=== PATIENT | male | born 1940 | race Caucasian/White ===

== ENCOUNTER 2017-05-19 12:14 | Inpatient (IN) ==
--- NOTE | 2017-05-19 13:42 | Internal Med History&Physical ---
Date of Encounter: 05/19/17 Time of Encounter: 13:30 Assessment and Plan (1) Hypertension, essential Current visit: Yes Status: Chronic Continue home HCTZ and metoprolol. (2) Hyperlipidemia Current visit: Yes Status: Chronic Continue home simvastatin. Qualifiers: Hyperlipidemia type: unspecified Qualified Code(s): E78.5 - Hyperlipidemia , unspecified (3) Bilateral pulmonary embolism Current visit: Yes Status: Chronic Patient had a h/o bilateral PE and bilateral DVT. Warfarin is currently subtherapeutic per report, so will involve pharmacy for warfarin dosing as well as bridge with Lovenox. (4) DVT, bilateral lower limbs Current visit: Yes Status: Chronic Patient had a h/o bilateral PE and bilateral DVT. Warfarin is currently subtherapeutic per report, so will involve pharmacy for warfarin dosing as well as bridge with Lovenox. Qualifiers: Affected thrombotic vein of extremity: unspecified lower extremity distal vein Chronicity: chronic Qualified Code(s): I82.5Z3 - Chronic embolism and thrombosis of unspecified deep veins of distal lower extremity, bilateral (5) GERD (gastroesophageal reflux disease) Current visit: Yes Status: Chronic Continue home omeprazole. Qualifiers: Esophagitis presence: esophagitis presence not specified Qualified Code(s) : K21.9 - Gastro-esophageal reflux disease without esophagitis (6) Neuropathic pain Current visit: Yes Status: Chronic Continue home gabapentin. (7) ESPERANZA treated with BiPAP Current visit: Yes Status: Chronic Continue home BiPAP with chin strap. (8) Status post right knee replacement Current visit: Yes Status: Acute - PT, OT, and RT consulted; appreciate rec(s). - Pain control with celecoxib, Manti, and oxycodone. (9) Constipation Current visit: Yes Status: Acute Will schedule Colace for now. Qualifiers: Constipation type: unspecified constipation type Qualified Code(s): K59.00 - Constipation, unspecified (10) Subtherapeutic international normalized ratio (INR) Current visit: Yes Status: Acute Appreciate pharmacy's input on warfarin dosing, will bridge with Lovenox as well. (11) Glaucoma Current visit: Yes Status: Acute Continue home latanoprost. Qualifiers: Glaucoma type: unspecified Laterality: unspecified laterality Qualified Code(s): H40.9 - Unspecified glaucoma Internal Medicine - H&P: HPI Chief complaint: S/P right knee arthroplasty needing rehab. History of present illness: Mr. Solis is a 76 year old male w/a PMH significant for HTN, HLD, h/o bilateral PE and DVT on chronic warfarin and s/p IVC filter in 2010, GERD, neuropathic pain, glaucoma, morbid obesity, ESPERANZA on BiPAP, and OA of right knee s/p right total knee arthroplasty on 05/16/2017 who has been transferred to our facility from [facility] for rehab purposes. At the time of this encounter, there was no discharge summary available. According to the patient, his procedure went well and he is looking forward to working with our therapists. Other than not having a BM for the past 4d, the patient feels overall well. Patient reports no fever, chills, CP, SOB, n/v, dysuria, seizure, tremor, skin rash, bruising, or bleeding symptoms. Per report, INR was 1.1 at discharge. It appears that the patient was discharged on scheduled celecoxib, PRN Manti, and PRN oxycodone for pain control. Past Med Surg Social Fam HX - Past Medical History Medical history: arthritis, DVT, GERD, glaucoma, hyperlipidemia, hypertension, pulmonary embolus - Past Surgical History Surgical History: appendectomy, cataract, knee replacement - Social History Smoking Status: Never smoker Smokeless Tobacco Status: No Alcohol use: none Drug use: none - Family History Mother Adopted: No Living Status: Hx Family Cardiac Disorders: Yes Internal Medicine - H&P: Meds 3 Allergy/AdvReac Type Severity Reaction Status Date / Time No Known Drug Allergies Allergy Loss of Verified 05/19/17 13:08 Appetite All Systems PM: A 10-system review of systems was performed and is negative for pertinent findings except as documented above in the HPI. Review of systems: 10-point ROS performed and (-) other than mentioned per HPI. - Constitutional Exam: Gen: A&Ox3, NAD. HEENT: Chin strap on (comes with BiPAP). NCAT. Neck: No palpable lymphadenopathy or thyromegaly. CV: Heart sounds mildly distant, but overall RRR, S1S2. No murmur. Capillary refill < 2 seconds. Pulm: On BiPAP (was taking a nap prior to this encounter). CTAB. Abd: (+)BS. NDNT. Neuro: Relative immobility in RLE, otherwise non-focal. Skin: No rash. Ext: Dressings over right knee c/d/i. No pitting edema. - Head Head exam: Present: atraumatic, normocephalic - Eye Eye exam: Present: PERRL, conjuntiva pink, sclera anicteric Pupils: Present: PERRL - Neck Neck exam general surgery: Present: supple, trachea midline. Absent: lymphadenopathy - Respiratory Respiratory exam: Present: CTAB. Absent: accessory muscle use, rales, rhonchi, wheezes - Cardiovascular Cardiovascular exam: Present: RRR, +S1, +S2. Absent: diastolic murmur, gallop, rubs, systolic murmur - GI/Abdominal GI/Abdominal exam: Present: normal bowel sounds, soft, no peritoneal signs. Absent: distended, tenderness - Extremities Exam Extremities exam: Present: warm, radial pulses palpable and symmetrical. Absent : calf tenderness, cyanotic, pedal edema - Neurological Exam Neurological exam: Present: CN II-XII intact, oriented X3, no focal deficits. Absent: pronater drift, facial droop, speech deficit - Skin Skin exam: Present: dry, intact
[2017-05-19 15:32] LABS: INR 1.2; Prothrombin Time 13.1 Seconds (9.4-12.1)
[2017-05-19] MEDS: *HR* Warfarin 3 MG TABLET PO SCH (17:34)
[2017-05-19] MEDS: *HR* OxyCODONE Immed Rel 5 MG TABLET PO PRN (17:42)
[2017-05-19] MEDS: *HR* Enoxaparin 150 MG/ML SYRINGE SQ SCH (17:42)
[2017-05-19] MEDS ORDERED: Warfarin perPT PO PRN (18:00)
[2017-05-19] MEDS: Gabapentin 300 MG CAPSULE PO SCH (21:46)
[2017-05-19] MEDS: *HR* HYDROcodone/Acet 5/325 mg TABLET PO PRN (21:50)
[2017-05-19] MEDS: Latanoprost 2.5 ML BOTTLE BOTH EYES SCH (21:51)
[2017-05-20] MEDS: *HR* HYDROcodone/Acet 5/325 mg TABLET PO PRN ×3 (04:04→12:44)
[2017-05-20 06:02] LABS: Basophils # 0.1 K/mcL (0.0-0.2); Basophils % 1.2 %; Eosinophils # 0.3 K/mcL (0.0-0.6); Hematocrit 36.3 % (37.5-50.1); Hemoglobin 12.1 g/dL (12.9-16.9); Immature Granulocytes % 0.8 % (0-4); Lymphocytes # 1.8 K/mcL (0.6-4.6); Lymphocytes % 26.4 %; Mean Corpuscular HGB Conc 33.3 g/dL (31.6-35.5); Mean Corpuscular Hemoglobin 29.5 pg (28.0-33.3); Mean Corpuscular Volume 88.5 fL (83.0-100.0); Mean Platelet Volume 10.9 fL (9.4-12.4); Monocytes # 0.6 K/mcL (0.0-1.3); Monocytes % 8.4 %; Neutrophils # 3.9 K/mcL (1.6-8.9); Platelet Count 165 K/mcL (140-400); Red Cell Distribution Width 14.2 % (11.5-14.5); Segmented Neutrophils % 58.2 %
[2017-05-20] MEDS: *HR* Enoxaparin 150 MG/ML SYRINGE SQ SCH ×2 (06:03→17:44)
[2017-05-20 06:12] LABS: BUN/Creatinine Ratio 25 (6-26); Blood Urea Nitrogen 20 mg/dL (8-26); Calcium 8.7 mg/dL (8.6-10.8); Carbon Dioxide 23 mEq/L (19-29); Chloride 104 mEq/L (98-109); Glucose 104 mg/dL (70-99); Osmolality,Calculated 283 (280-300); Potassium 4.2 mEq/L (3.5-4.5); Sodium 135 mEq/L (136-145); eGFR For African Americans > 60 (> 60); eGFR For Non-African Americans > 60 (> 60)
[2017-05-20 07:14] LABS: INR 1.3; Prothrombin Time 13.9 Seconds (9.4-12.1)
[2017-05-20 07:17] LABS: Activated Partial Thrombo Time 35.3 Seconds (26.0-36.0)
[2017-05-20] MEDS: Lisinopril 20 MG TABLET PO SCH (08:33)
[2017-05-20] MEDS: hydroCHLOROthiazide 25 MG TABLET PO SCH (08:33)
[2017-05-20] MEDS: Gabapentin 300 MG CAPSULE PO SCH ×2 (08:34→20:14)
[2017-05-20] MEDS: Celecoxib 200 MG CAPSULE PO SCH (08:34)
--- NOTE | 2017-05-20 14:09 | Internal Med Progress Note ---
Date of Encounter: 05/20/17 Time of Encounter: 14:07 - Assessment and plan (1) Bilateral pulmonary embolism Current Visit: Yes Status: Chronic Assessment and plan: She had a remote bilateral DVTs with bilateral PEs. I am sure his Coumadin was held due to his recent surgery for the knee (2) DVT, bilateral lower limbs Current Visit: Yes Status: Chronic Assessment and plan: At DVTs of the lower extremities and with PE Qualifiers: Affected thrombotic vein of extremity: unspecified lower extremity distal vein Chronicity: chronic Qualified Code(s): I82.5Z3 - Chronic embolism and thrombosis of unspecified deep veins of distal lower extremity, bilateral (3) Status post right knee replacement Current Visit: Yes Status: Acute Assessment and plan: Probably why some therapeutic on his Coumadin was held for surgery - Time Spent With Patient less than 15 minutes - Subjective Interval history: Patient's doing well walk 200 feet and is cooperating with PT OT and TR. - Constitutional Vitals: Temp Pulse Resp BP Pulse Ox 98.6 F 72 16 164/81 95 05/20/17 11:15 05/20/17 11:15 05/20/17 11:15 05/20/17 11:15 05/20/17 11:15 - Head Head exam: Present: atraumatic, normal inspection, normocephalic - Neck Neck exam general surgery: Present: supple, trachea midline. Absent: lymphadenopathy - Respiratory Respiratory exam: Present: CTAB. Absent: accessory muscle use, rales, rhonchi, wheezes - Cardiovascular Cardiovascular exam: Present: RRR, +S1, +S2. Absent: diastolic murmur, gallop, rubs, systolic murmur Internal Medicine: Result - Labs CBC & Chem 7: 05/20/17 05:10 05/20/17 05:10 Labs: Short CBC 05/20/17 Range/Units 05:10 WBC 6.6 (4.3-11.1) K/mcL Hgb 12.1 L (12.9-16.9) g/dL Hct 36.3 L (37.5-50.1) % Plt Count 165 (140-400) K/mcL Neutrophils # 3.9 (1.6-8.9) K/mcL BMP 05/20/17 05:10 Sodium 135 L Potassium 4.2 Chloride 104 Carbon Dioxide 23 BUN 20 Creatinine 0.81 Glucose 104 H Calcium 8.7 Labs stable - ABG Interpretation ABG results: PT/INR, D-dimer PT 13.9 Seconds (9.4-12.1) H 05/20/17 05:10 - VTE Documentation of Mechanical Device: Graduated compression elastic hosiery Consult Discharge Plan - Plan Referrals: Delvis Ariza MD [Primary Care Provider] -
[2017-05-20] MEDS: *HR* Warfarin 3 MG TABLET PO SCH (17:44)
[2017-05-20] MEDS: Latanoprost 2.5 ML BOTTLE BOTH EYES SCH (20:16)
[2017-05-20] MEDS: *HR* OxyCODONE Immed Rel 5 MG TABLET PO PRN (20:24)
[2017-05-21] MEDS: *HR* OxyCODONE Immed Rel 5 MG TABLET PO PRN ×4 (03:43→23:42)
[2017-05-21 06:08] LABS: INR 1.4; Prothrombin Time 15.2 Seconds (9.4-12.1)
[2017-05-21] MEDS: *HR* Enoxaparin 150 MG/ML SYRINGE SQ SCH ×2 (06:08→16:43)
[2017-05-21] MEDS: Celecoxib 200 MG CAPSULE PO SCH (09:12)
[2017-05-21] MEDS: Gabapentin 300 MG CAPSULE PO SCH ×2 (09:12→21:13)
[2017-05-21] MEDS: Lisinopril 20 MG TABLET PO SCH (09:12)
[2017-05-21] MEDS: hydroCHLOROthiazide 25 MG TABLET PO SCH (09:13)
[2017-05-21] MEDS ORDERED: Celecoxib 200 MG CAPSULE PO PRN (14:27)
--- NOTE | 2017-05-21 14:27 | Internal Med Progress Note ---
Date of Encounter: 05/21/17 Time of Encounter: 14:24 - Assessment and plan (1) Bilateral pulmonary embolism Current Visit: Yes Status: Chronic Assessment and plan: Well patient is currently stable he is back on meds now that surgery is over there is no bleeding. (2) DVT, bilateral lower limbs Current Visit: Yes Status: Chronic Assessment and plan: History Qualifiers: Affected thrombotic vein of extremity: unspecified lower extremity distal vein Chronicity: chronic Qualified Code(s): I82.5Z3 - Chronic embolism and thrombosis of unspecified deep veins of distal lower extremity, bilateral (3) Status post right knee replacement Current Visit: Yes Status: Acute Assessment and plan: Why he is here for rehabilitation. - Time Spent With Patient less than 15 minutes - Subjective Interval history: Patient's doing well walk 200 feet and is cooperating with PT OT and TR.. Doing well only complaint is constipation after 6 days. Pain is intermittent and depending on amateur exercises doing. Making good progress. - Constitutional Vitals: Temp Pulse Resp BP Pulse Ox 98 F 80 16 158/82 96 05/21/17 11:00 05/21/17 11:00 05/21/17 11:00 05/21/17 11:00 05/21/17 11:00 - Head Head exam: Present: atraumatic, normal inspection, normocephalic - Neck Neck exam general surgery: Present: supple, trachea midline. Absent: lymphadenopathy - Respiratory Respiratory exam: Present: CTAB. Absent: accessory muscle use, rales, rhonchi, wheezes - Cardiovascular Cardiovascular exam: Present: RRR, +S1, +S2. Absent: diastolic murmur, gallop, rubs, systolic murmur - Expanded Lower Extremities Exam Knee exam: Present: swelling, tenderness (Dressings clean and dry) Internal Medicine: Result - Labs CBC & Chem 7: 05/20/17 05:10 05/20/17 05:10 Labs: Lab is stable - ABG Interpretation ABG results: PT/INR, D-dimer PT 15.2 Seconds (9.4-12.1) H 05/21/17 05:35 - VTE Documentation of Mechanical Device: Intermittent pneumatic compression device Consult Discharge Plan - Plan Referrals: Delvis Ariza MD [Primary Care Provider] -
[2017-05-21] MEDS ORDERED: *HR* Warfarin 3 MG TABLET PO SCH (18:00)
[2017-05-21] MEDS ORDERED: *HR* Warfarin 5 MG TABLET PO SCH (18:00)
[2017-05-21] MEDS: Latanoprost 2.5 ML BOTTLE BOTH EYES SCH (23:42)
[2017-05-22] MEDS: *HR* Enoxaparin 150 MG/ML SYRINGE SQ SCH ×2 (06:57→17:05)
[2017-05-22] MEDS: *HR* OxyCODONE Immed Rel 5 MG TABLET PO PRN ×2 (06:57→20:33)
[2017-05-22 07:37] LABS: INR 1.3; Prothrombin Time 14.5 Seconds (9.4-12.1)
[2017-05-22] MEDS: hydroCHLOROthiazide 25 MG TABLET PO SCH (09:55)
[2017-05-22] MEDS: Celecoxib 200 MG CAPSULE PO SCH (09:56)
[2017-05-22] MEDS: Gabapentin 300 MG CAPSULE PO SCH ×2 (09:56→20:34)
[2017-05-22] MEDS: Lisinopril 20 MG TABLET PO SCH (09:57)
[2017-05-22] MEDS: *HR* HYDROcodone/Acet 5/325 mg TABLET PO PRN ×2 (12:32→17:05)
--- NOTE | 2017-05-22 12:43 | Physical Med Progress Note ---
Date of Encounter: 05/22/17 Time of Encounter: 12:35 Physical Medicine-PN: Subj Interval history: PMR PCC Note Patient admitted following right total knee arthroplasty. Patient is mod I for all ADLs. Patient is independent on the unit. Able to go up and down steps mod I. Plan for discharge to home 05/23/17. - Constitutional Vitals: Vital Signs Temp Pulse Resp BP Pulse Ox 05/22/17 07:00 97.8 F 70 18 169/84 95 05/21/17 19:27 98.7 F 88 17 161/82 94 Intake and Output 05/21/17 05/22/17 05/22/17 23:59 07:59 15:59 Intake Total 550 / 550 460 / 460 Balance 550 / 550 460 / 460 Intake: Oral 550 / 550 460 / 460 Other: Meal Breakfast Percent of Meal Consumed 100% Stool Size Copious Stool Consistency formed Stool Color Brown # Voids 1 # Bowel Movements 1 Physical Medicine-PN: Obj Data - Labs CBC & Chem 7: 05/20/17 05:10 05/20/17 05:10 Labs: Laboratory Results - last 24 hr 05/22/17 07:14 PT 14.5 H INR 1.3 - ABG Interpretation ABG results: PT/INR, D-dimer PT 14.5 Seconds (9.4-12.1) H 05/22/17 07:14 - VTE Documentation of Mechanical Device: Intermittent pneumatic compression device Consult Discharge Plan - Plan Referrals: Delvis Ariza MD [Primary Care Provider] -
--- NOTE | 2017-05-22 15:49 | Discharge Summary ---
Date of Encounter: 05/22/17 Time of Encounter: 15:47 - Discharge Diagnosis (1) Bilateral pulmonary embolism Priority: Secondary Status: Chronic (2) DVT, bilateral lower limbs Priority: Secondary Status: Chronic Qualifiers: Affected thrombotic vein of extremity: unspecified lower extremity distal vein Chronicity: chronic Qualified Code(s): I82.5Z3 - Chronic embolism and thrombosis of unspecified deep veins of distal lower extremity, bilateral (3) Status post right knee replacement Priority: Primary Status: Acute - Discharge Medications Home Medications: Gabapentin [Neurontin] 300 mg PO BID 05/19/17 [History] Hydrochlorothiazide [Microzide] 12.5 mg PO DAILY 05/19/17 [History] Latanoprost [Xalatan] 2.5 bottle BOTH EYES HS 05/19/17 [History] Lisinopril [Zestril] 20 mg PO DAILY 05/19/17 [History] Metoprolol Tartrate [Lopressor] 50 mg PO BID 05/19/17 [History] Multivit-Min/Iron Fum/Folic AC [Bhlvj-Qinowsp-Irmpuqxl Tablet] 1 each PO DAILY 05/19/17 [History] [place]-3S/Dha/Epa/Fish Oil [Fish Oil [place]-3 Softgel] 1 tab PO BID 05/19/17 [ History] Omeprazole [PriLOSEC] 20 mg PO DAILY 05/19/17 [History] Simvastatin [Zocor] 20 mg PO HS 05/19/17 [History] Warfarin [Coumadin] 5 tab PO 2XW 05/19/17 [History] Warfarin [Coumadin] 6 mg PO 5XW 05/19/17 [History] Allergies/Adverse Reactions: 3 Allergy/AdvReac Type Severity Reaction Status Date / Time No Known Drug Allergies Allergy Loss of Verified 05/19/17 13:08 Appetite Date of admission: 05/19/17 12:14 Primary care physician: Delvis Ariza MD Consults: 05/19/17 13:20 Consult to Occupational Therapy [CONS] Routine Comment: Evaluate, develop and implement POC Reason for Consult: Please assess and assist with dispo, thanks! Consult to Physical Therapy [CONS] Routine Comment: Evaluate, develop and implement POC Reason for Consult: Please assess and assist with dispo, thanks! Consult to Recreational Therapy [CONS] Routine Comment: Evaluate, develop and implement POC Consult to Big Data Engineer [CONS] Routine Reason for SW Consult: Discharge planning, thanks! 05/20/17 13:36 Consult for Pharmacy Education [CONS] Routine Reason for Consult: Warfarin dosing Time Notified: 11:00 Call Completed: No Discharging clinician: Ziggy Hurley - Patient Status Disposition: Home, Self-Care Condition: Good Functional capacity at discharge: uses cane/walker Overall status at discharge: patient is progressing back to baseline - Discharge Instructions Follow Up With: Delvis Ariza MD [Primary Care Provider] - - Diet and Activity Activity: ambulate only with your walker Diet: advance to your usual diet Interval History: Patient was brought here for rehabilitation after total knee replacement on the left. Hospital course: Mr. Solis is a 76 year old male Age and is ambulating about the unit with his walker and doing very well. He is up dressed eating and has follow-ups - Time Spent with Patient Total time spent providing and/or coordinating discharge services: Less than 30 minutes - Constitutional Vitals: Temp Pulse Resp BP Pulse Ox 97.8 F 70 18 169/84 95 05/22/17 07:00 05/22/17 07:00 05/22/17 07:00 05/22/17 07:00 05/22/17 07:00 - Head Head exam: Present: atraumatic, normal inspection, normocephalic - Neck Neck exam general surgery: Present: supple, trachea midline. Absent: lymphadenopathy - Respiratory Respiratory exam: Present: CTAB. Absent: accessory muscle use, rales, rhonchi, wheezes - Cardiovascular Cardiovascular exam: Present: RRR, +S1, +S2. Absent: diastolic murmur, gallop, rubs, systolic murmur - VTE Documentation of Mechanical Device: Intermittent pneumatic compression device
[2017-05-22] MEDS ORDERED: *HR* Warfarin 7.5 MG TABLET PO ONE (18:00)
[2017-05-22] MEDS: Latanoprost 2.5 ML BOTTLE BOTH EYES SCH (20:36)
[2017-05-23 05:38] LABS: INR 1.3; Prothrombin Time 14.4 Seconds (9.4-12.1)
[2017-05-23] MEDS: *HR* HYDROcodone/Acet 5/325 mg TABLET PO PRN (06:34)
[2017-05-23] MEDS: *HR* Enoxaparin 150 MG/ML SYRINGE SQ SCH (06:34)
[2017-05-23 07:07] VITALS: BP 131/79
[2017-05-23] MEDS: Celecoxib 200 MG CAPSULE PO SCH (09:08)
[2017-05-23] MEDS: Gabapentin 300 MG CAPSULE PO SCH (09:08)
[2017-05-23] MEDS: Lisinopril 20 MG TABLET PO SCH (09:08)
[2017-05-23] MEDS: hydroCHLOROthiazide 25 MG TABLET PO SCH (09:08)
[2017-05-23] MEDS: *HR* OxyCODONE Immed Rel 5 MG TABLET PO PRN (10:22)
[2017-05-23] MEDS ORDERED: *HR* Warfarin 7.5 MG TABLET PO ONE (18:00)
== END 2017-05-23 16:02 | disposition home or self-care (01) | DRG 560 ==
LOC: INPGRE 12:14
PROVIDERS: ADMIT Internal Medicine; ATTEND Internal Medicine

== ENCOUNTER 2022-03-04 20:05 | Inpatient (IN) ==
[2022-03-04] MEDS ORDERED: 0.9 % Sodium Chloride 1,000 ML IV ONE (20:20)
[2022-03-04 20:37] LABS: Basophils # 0.1 K/mcL (0.0-0.2); Basophils % 0.9 %; Eosinophils % 0.4 %; Hematocrit 46.7 % (37.5-50.1); Hemoglobin 15.2 g/dL (12.9-16.9); Immature Granulocytes % 0.5 % (0-4); Lymphocytes # 0.4 K/mcL (0.6-4.6); Lymphocytes % 5.5 %; Mean Corpuscular HGB Conc 32.5 g/dL (31.6-35.5); Mean Corpuscular Hemoglobin 28.4 pg (28.0-33.3); Mean Corpuscular Volume 87.1 fL (83.0-100.0); Mean Platelet Volume 10.1 fL (9.4-12.4); Monocytes # 0.8 K/mcL (0.0-1.3); Monocytes % 10.4 %; Neutrophils # 6.6 K/mcL (1.6-8.9); Platelet Count 170 K/mcL (140-400); Red Blood Count 5.36 M/mcL (4.19-5.50); Red Cell Distribution Width 14.2 % (11.5-14.5); Segmented Neutrophils % 82.3 %
[2022-03-04 20:50] LABS: INR 2.5; Prothrombin Time 27.4 Seconds (9.4-12.1)
[2022-03-04 20:53] LABS: Albumin 4.2 g/dL (3.5-5.7); Albumin/Globulin Ratio 1.6 (1.1-2.2); Bilirubin,Direct 0.2 mg/dL (0.0-0.2); Bilirubin,Total 0.7 mg/dL (0.3-1.0); Calcium 9.5 mg/dL (8.6-10.3); Globulin 2.6 g/dL (2.4-3.5); Magnesium 1.6 mg/dL (1.6-2.6); Potassium 3.9 mEq/L (3.5-5.1); Total Protein 6.8 g/dL (6.4-8.9)
[2022-03-04 21:01] LABS: Troponin I 0.01 ng/mL (< 0.04)
[2022-03-04 21:25] LABS: Bilirubin,Urine Negative (Negative); Blood,Urine Trace-intact (Negative); Clarity,Urine Clear (Clear); Color,Urine Yellow (Yellow); Glucose,Urine (UA) Normal (Normal); Ketones,Urine Trace mg/dL (Negative); Leukocyte Esterase,Urine Negative (Negative); Nitrite,Urine Negative (Negative); PH,Urine 5.5 pH Units (5.0-8.0); Protein,Urine 30 mg/dL (Neg-Trace); Urobilinogen,Urine Normal (Normal)
[2022-03-04 21:29] LABS: Amorphous Sediment,Urine Few per hpf (None-Few); RBC,Urine 0-3 per hpf (0-3)
[2022-03-04] MEDS ORDERED: Ondansetron ODT 4 MG TAB.RAPDIS SL PRN (22:32)
[2022-03-04] MEDS ORDERED: Naloxone 0.4 MG/ML INJ IVP PRN (22:32)
[2022-03-04] MEDS: Gabapentin 400 MG CAPSULE PO SCH (23:27)
[2022-03-04] MEDS: 0.9 % Sodium Chloride 1,000 ML IVC SCH (23:28)
[2022-03-05 08:36] LABS: Basophils % 0.7 %; Eosinophils # 0.2 K/mcL (0.0-0.6); Eosinophils % 3.1 %; Hematocrit 44.7 % (37.5-50.1); Hemoglobin 14.2 g/dL (12.9-16.9); Immature Granulocytes % 0.3 % (0-4); Lymphocytes # 1.2 K/mcL (0.6-4.6); Lymphocytes % 19.6 %; Mean Corpuscular HGB Conc 31.8 g/dL (31.6-35.5); Mean Corpuscular Hemoglobin 28.4 pg (28.0-33.3); Mean Corpuscular Volume 89.4 fL (83.0-100.0); Mean Platelet Volume 9.9 fL (9.4-12.4); Monocytes # 1.1 K/mcL (0.0-1.3); Monocytes % 17.7 %; Neutrophils # 3.6 K/mcL (1.6-8.9); Platelet Count 153 K/mcL (140-400); Red Cell Distribution Width 14.6 % (11.5-14.5); Segmented Neutrophils % 58.6 %; White Blood Count 6.1 K/mcL (4.3-11.1)
[2022-03-05 08:50] LABS: Calcium 8.6 mg/dL (8.6-10.3); Potassium 3.9 mEq/L (3.5-5.1)
[2022-03-05] MEDS: Benzonatate 100 MG CAPSULE PO PRN ×2 (09:09→17:56)
[2022-03-05] MEDS: Multivit/Ca/Min/Fe/FA 1 TAB TABLET PO SCH (09:09)
[2022-03-05] MEDS: Gabapentin 400 MG CAPSULE PO SCH ×3 (09:09→21:01)
[2022-03-05] MEDS: lisinopriL 10 MG TABLET PO SCH (09:10)
[2022-03-05 10:56] LABS: Prothrombin Time 22.2 Seconds (9.4-12.1)
[2022-03-05] MEDS ORDERED: dexAMETHasone 4 MG TABLET PO SCH (11:00)
[2022-03-05] MEDS: Latanoprost 2.5 ML BOTTLE BOTH EYES SCH (11:24)
[2022-03-05] MEDS ORDERED: Saline Nasal Spray 44 ML BOTTLE NS PRN (14:48)
[2022-03-05] MEDS: Dexamethasone Sodium Phos/PF 10 MG/ML VIAL IVP SCH (15:17)
[2022-03-05] MEDS: 0.9 % Sodium Chloride 1,000 ML IVC SCH (17:24)
[2022-03-05] MEDS: Doxycycline 100 MG in 0.9 % Sodium Chloride Mini Bag 100 ML IVPB SCH (17:56)
[2022-03-05] MEDS ORDERED: *HR* Warfarin 5 MG TABLET PO SCH (18:00)
[2022-03-06] MEDS: Doxycycline 100 MG in 0.9 % Sodium Chloride Mini Bag 100 ML IVPB SCH ×2 (04:48→18:26)
[2022-03-06] MEDS: Benzonatate 100 MG CAPSULE PO PRN ×2 (04:49→21:55)
[2022-03-06 05:00] LABS: Mean Corpuscular HGB Conc 32.6 g/dL (31.6-35.5); Mean Corpuscular Hemoglobin 28.6 pg (28.0-33.3); Mean Corpuscular Volume 87.6 fL (83.0-100.0); Mean Platelet Volume 10.1 fL (9.4-12.4); Platelet Count 169 K/mcL (140-400); Red Blood Count 5.25 M/mcL (4.19-5.50); White Blood Count 5.5 K/mcL (4.3-11.1)
[2022-03-06 05:19] LABS: BUN/Creatinine Ratio 18 (6-26); Blood Urea Nitrogen 21 mg/dL (8-23); Calcium 8.9 mg/dL (8.6-10.3); Carbon Dioxide 27 mEq/L (23-29); Chloride 104 mEq/L (98-107); Glucose 171 mg/dL (70-105); Osmolality,Calculated 297 (280-300); Potassium 3.9 mEq/L (3.5-5.1); Sodium 140 mEq/L (136-145); eGFR For African Americans > 60 (> 60); eGFR For Non-African Americans 58 (> 60)
[2022-03-06] MEDS: Dexamethasone Sodium Phos/PF 10 MG/ML VIAL IVP SCH (08:14)
[2022-03-06] MEDS: Gabapentin 400 MG CAPSULE PO SCH ×3 (08:14→21:55)
[2022-03-06] MEDS: lisinopriL 10 MG TABLET PO SCH (08:15)
[2022-03-06] MEDS: Multivit/Ca/Min/Fe/FA 1 TAB TABLET PO SCH (08:15)
[2022-03-06] MEDS ORDERED: Dexamethasone Sodium Phos/PF 10 MG/ML VIAL IVP SCH (09:00)
[2022-03-06] MEDS ORDERED: Warfarin perPT PO PRN (14:14)
[2022-03-06] MEDS ORDERED: *HR* Warfarin 2.5 MG TABLET PO SCH (18:00)
[2022-03-06] MEDS ORDERED: *HR* Warfarin 2.5 MG TABLET PO ONE (18:00)
[2022-03-06] MEDS: Latanoprost 2.5 ML BOTTLE BOTH EYES SCH (21:56)
[2022-03-07 04:46] LABS: INR 2.3
[2022-03-07] MEDS: Doxycycline 100 MG in 0.9 % Sodium Chloride Mini Bag 100 ML IVPB SCH (06:05)
[2022-03-07 06:51] VITALS: RESP 18
[2022-03-07] MEDS: Dexamethasone Sodium Phos/PF 10 MG/ML VIAL IVP SCH (08:52)
[2022-03-07] MEDS: Gabapentin 400 MG CAPSULE PO SCH (08:53)
[2022-03-07] MEDS: lisinopriL 10 MG TABLET PO SCH (08:53)
[2022-03-07] MEDS: Multivit/Ca/Min/Fe/FA 1 TAB TABLET PO SCH (08:53)
[2022-03-07 11:39] VITALS: BP 144/75; PULSE 58; TEMP 98.3; O2SAT 95
[2022-03-07] MEDS ORDERED: *HR* Warfarin 2.5 MG TABLET PO ONE (18:00)
== END 2022-03-07 13:36 | disposition home or self-care (01) | DRG 177 ==
LOC: INPGRE 20:05 → EMEROOGRE 20:05 → INPGRE 22:34
PROVIDERS: ADMIT Internal Medicine; ATTEND Family Medicine